=== PATIENT | male | born 1990 | race Caucasian/White ===

== ENCOUNTER 2017-01-26 15:04 | Emergency (ER) | payer OTHER ==
[2017-01-26] MEDS ORDERED: GENTAMICIN SULFATE 0.3% OPTH 5 ML BTL OPTH SCH (17:30)
--- NOTE | 2017-01-26 17:33 | Emergency Department Record ---
History of Present Illness - General Chief complaint: Eye Problem Stated complaint: BOTH EYE IRRATATION Time Seen by Provider: 01/26/17 17:23 Source: Patient Mode of Arrival: Ambulatory Limitations: No limitations - History of Present Illness Initial comments: 26 yo male presents to ED for evaluation of itching and irritation to the eyes bilaterally for the past 2-3 weeks. 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 Patient denies discharge from the eyes, and denies change in vision. Patient denies health problems at his baseline. Patient does report getting a new cat recently (several weeks ago), has been taking OTC allergy medication without improvement in his symptoms. chief complaint: Eye redness, Other (irritation) Onset/Timin -: Week(s) Onset Description: Gradual Location: Both eyes Place: Home If Injury: None Eye Symptoms: Burning, Itching, Pain, Redness Severity: Mild Severity scale (1-10): 4 Consistency: Intermittent Associated Symptoms: None Treatments Prior to Arrival: Irrigated eye, OTC eye drops - Related Data With correction: No Hx Tetanus Toxoid Vaccination: No Previous Rx's Medication Instructions Recorded Olopatadine HCl [Patanol] 5 ml OP BID #5 ml 01/26/17 Allergies Allergy/AdvReac Type Severity Reaction Status Date / Time No Known Drug Allergies Allergy Verified 03/01/14 14:57 Travel Screening - Travel/Exposure Within Last 30 Days Have you traveled within the last 30 days?: No - Travel Symptoms Symptom Screening: None Review of Systems Constitutional: Denies: Chills, Fever, Malaise, Night sweats Eyes: Reports: Other (itching, redness, irritation). Denies: Eye discharge, Photophobia, Vision change ENT: Denies: Congestion, Epistaxis, Hearing loss Respiratory: Denies: Cough, Dyspnea Cardiovascular: Denies: Chest pain, Dyspnea on exertion Endocrine: Denies: Fatigue, Heat or cold intolerance Gastrointestinal: Denies: Abdominal pain, Nausea, Vomiting Genitourinary: Denies: Incontinence, Retention Musculoskeletal: Denies: Arthralgia, Back pain, Gout, Joint swelling Skin: Denies: Bruising, Change in color Neurological: Denies: Abnormal gait, Confusion, Headache, Numbness Psychiatric: Denies: Anxiety Hematological/Lymphatic: Denies: Anemia, Blood Clots Past Medical History - SOCIAL HISTORY Smoking Status: Never smoker Alcohol Use: Occasional Drug Use: None - RESPIRATORY Hx Respiratory Disorders: No - CARDIOVASCULAR Hx Cardio Disorders: No - NEURO Hx Neuro Disorders: No - GI Hx GI Disorders: No - Hx Genitourinary Disorders: No - ENDOCRINE Hx Endocrine Disorders: No - MUSCULOSKELETAL Hx Musculoskeletal Disorders: No - PSYCH Hx Psych Problems: No - HEMATOLOGY/ONCOLOGY Hx Hematology/Oncology Disorders: No Family Medical History Any Significant Family History?: No Family Hx Comment (NOT TO BE USED IN PLACE OF ITEMS BELOW): DENIES Physical Exam - General General Appearance: Alert, Oriented x3, Cooperative, No acute distress Limitations: No limitations - Head Head exam: Atraumatic, Normocephalic, Normal inspection Head exam detail: negative: Abrasion, Contusion, Kelly's sign, General tenderness, Hematoma, Laceration - Eye Eye exam: Conjunctival injection, Other (mild injection to the right medial conjunctiva). negative: Periorbital swelling, Periorbital tenderness, Scleral icterus With correction: No - ENT Ear exam: negative: Auricular hematoma, Auricular trauma Nasal Exam: negative: Active bleeding, Discharge, Dried blood, Foreign body Mouth exam: negative: Drooling, Laceration, Muffled voice, Tongue elevation - Neck Neck exam: Normal inspection. negative: Meningismus, Tenderness - Respiratory Respiratory exam: Normal lung sounds bilaterally. negative: Respiratory distress, Rhonchi, Stridor, Wheezes - Cardiovascular Cardiovascular Exam: Regular rate, Normal rhythm, Normal heart sounds - GI/Abdominal GI/Abdominal exam: Soft. negative: Rebound, Rigid, Tenderness - Rectal Rectal exam: Deferred - exam: Deferred - Extremities Extremities exam: Normal inspection. negative: Pedal edema, Tenderness - Back Back exam: Denies: CVA tenderness (R), CVA tenderness (L) - Neurological Neurological exam: Alert, Normal gait, Oriented X3 - Psychiatric Psychiatric exam: Normal affect, Normal mood - Skin Skin exam: Normal color. negative: Abrasion Type of lesion: negative: abrasion Course Vital Signs 01/26/17 15:43 Temperature 98.9 F Pulse Rate 56 L Respiratory 20 Rate Blood Pressure 114/84 Pulse Ox 97 - Reevaluation(s) Reevaluation #1: 01/26/17 18:07 ON examination, no discharge is present from the medial canthus of either eye. Eyes were anesthetized bilaterally, Wood's lamp examination fails to demonstrate any corneal injury or abrasion, -Bulmaro's sign. Lids were everted bilaterally upper and lower without any evidence for FB. Patient has FROM of both eyes as well on examination, and VA is 20/20 bilaterally. Following examination, symptoms appear c/w conjunctivitis. Will treat with Polymyxin eye drops as well as Patanol as his symptoms are likely allergic in nature. Patient agrees with plan as discussed. Disposition Disposition: Discharge Clinical Impression: Conjunctivitis Qualifiers: Conjunctivitis type: acute Acute conjunctivitis type: unspecified Laterality: bilateral Qualified Code(s): H10.33 - Unspecified acute conjunctivitis, bilateral Disposition: Home, Self-Care Condition: (2) Stable Instructions: Conjunctivitis (ED) Additional Instructions: Return to ED if your symptoms worsen or if you have any concerns. Polymyxin/TMP every 3 hours to both eyes for 5-7 days. Continue over-the counter allergy medication as taken before. Patanol as directed. Follow-up with your family doctor in 3-5 days as directed. Prescriptions: Olopatadine HCl [Patanol] 5 ml OP BID #5 ml Forms: Patient Portal Access Time of Disposition: 18:12 Quality - Quality Measures Quality Measures: N/A - Blood Pressure Screening Does Patient Have Any of the Following: No Blood Pressure Classification: Pre-Hypertensive BP Reading Systolic Measurement: 114 Diastolic Measurement: 84 Screening for High Blood Pressure: < Pre-Hypertensive BP, F/U Documented > [ G8950] Pre-Hypertensive Follow-up Interventions: Referral to alternative/primary care provider.
[2017-01-26] MEDS ORDERED: NEO/POLY B/DEXAMETH 5ML SUSP EACH EYE ONE (18:11)
== END 2017-01-26 18:25 | disposition home or self-care (01) ==
LOC: ER 15:04
DX: H10.33 Unspecified acute conjunctivitis, bilateral (principal)
CPT/HCPCS: 99282

== ENCOUNTER 2017-12-13 15:15 | Emergency (ER) | payer OTHER ==
[2017-12-13] MEDS ORDERED: Diph,Pert(Acell),Tet Vac 0.5 ML SYR IM ONE (15:33)
--- NOTE | 2017-12-13 15:36 | Emergency Department Record ---
History of Present Illness - General Stated Complaint: LAC L LEG LOWER THIGH Time Seen by Provider: 12/13/17 15:33 Source: Patient Mode of Arrival: Ambulatory Limitations: No limitations - History of Present Illness Initial Comments: 27 yo male presents with a posterior left leg laceration. He slid on a metal stairway and lacerated the posterior leg on a sharp piece of the metal. He immediately clean the wound with soap and water then applied a dressing. The wound continue to bleed at times so he presented to the ED. The initial injury occurred at 4-4:30am. He has kept it clean and covered since then. Unsure of the last tetanus. MD Complaint: Leg injury -: Hour(s) Injury: Leg: Left Type of Injury: Laceration Place: Home Severity: Moderate Improves With: Nothing Worsens With: Nothing Context: Other Associated Symptoms: Other (No limitation in walking) - Related Data Previous Rx's Medication Instructions Recorded Cephalexin [Keflex] 500 mg PO QID #28 cap 12/13/17 Allergies Allergy/AdvReac Type Severity Reaction Status Date / Time No Known Drug Allergies Allergy Verified 12/13/17 15:35 Review of Systems Constitutional: Denies: Chills, Fever, Malaise, Weakness Eyes: Denies: Eye discharge ENT: Denies: Congestion, Throat pain Respiratory: Denies: Cough Cardiovascular: Denies: Syncope Gastrointestinal: Denies: Nausea, Vomiting Genitourinary: Denies: Dysuria, Frequency Musculoskeletal: Reports: Myalgia. Denies: Arthralgia, Back pain, Joint swelling, Neck pain Skin: Reports: Other (Laceration). Denies: Bruising, Change in color Neurological: Denies: Numbness, Tingling, Weakness Psychiatric: Denies: Anxiety Hematological/Lymphatic: Denies: Easy bleeding, Easy bruising Past Medical History - SOCIAL HISTORY Smoking Status: Never smoker Drug Use: None - RESPIRATORY Hx Respiratory Disorders: No - CARDIOVASCULAR Hx Cardio Disorders: No - NEURO Hx Neuro Disorders: No - GI Hx GI Disorders: No - Hx Genitourinary Disorders: No - ENDOCRINE Hx Endocrine Disorders: No - MUSCULOSKELETAL Hx Musculoskeletal Disorders: No - PSYCH Hx Psych Problems: No - HEMATOLOGY/ONCOLOGY Hx Hematology/Oncology Disorders: No Family Medical History Family Hx Comment (NOT TO BE USED IN PLACE OF ITEMS BELOW): DENIES Physical Exam - General General Appearance: Alert, Oriented x3, Cooperative, No acute distress Limitations: No limitations - Head Head exam: Atraumatic, Normal inspection - Eye Eye exam: Normal appearance, PERRL. negative: Conjunctival injection, Scleral icterus - ENT ENT exam: Normal exam Ear exam: Normal external inspection Nasal Exam: Normal inspection Mouth exam: Normal external inspection - Neck Neck exam: Normal inspection - Cardiovascular Cardiovascular Exam: Regular rate, Normal rhythm - exam: Deferred - Extremities Extremities exam: Full ROM, Normal capillary refill. negative: Normal inspection, Calf tenderness, Joint swelling, Pedal edema, Tenderness Image of Full Body: 1 - 6cm laceration, clean, no visible FB, no active bleeding, no visible tendon or muscle injury. - Neurological Neurological exam: Alert, Oriented X3 - Psychiatric Psychiatric exam: Normal affect, Normal mood - Skin Type of lesion: Laceration Course - Reevaluation(s) Reevaluation #1: We discussed the injury and some delay in presentation and increase risks for infection and wound healing. He did clean and dress the wound at the time of the injury. He understands the issues and agrees with closure after extensive cleaning and exploration. 12/13/17 16:11 Procedure Note: 6 cm laceration of the posterior left thigh/leg Wound was cleaned and prepped in sterile fashion, no residual FB identified on examination. No tendon or muscle involvement The wound was copiously irrigated with NS 1.5 L Wound was anesthetized with 6 mL of 1% Lidocaine with epinephrine The laceration was repaired with Ethilon 4-0 sutures in interrupted fashion. 12 sutures placed Patient tolerated the procedure well without complications. He will be made non weight bearing off work due to the location of the injury and nature of his job I have asked him to call his PCP for close follow up or return to the ED for a wound check this week given some increase risks with healing. We discussed home care, reasons for immediate return if any concerns, and suture removal in 14 days 12/13/17 16:48 Disposition Disposition: Discharge Clinical Impression: Leg laceration Disposition: Home, Self-Care Condition: (1) Good Instructions: Laceration (ED) Additional Instructions: Take the prescriptions provided today as directed. Call your family doctor. Call to schedule the next available appointment for a recheck this week No weight bearing. Use the crutches to avoid weight bearing. Do not return to work until cleared by your doctor Return to ED if your symptoms worsen or if you have any new concerns. Review the final Emergency Record and test results with your doctor on follow up Prescriptions: Cephalexin [Keflex] 500 mg PO QID #28 cap Forms: Patient Portal Access Time of Disposition: 16:13 Quality - Quality Measures Quality Measures: N/A - Blood Pressure Screening Does Patient Have Any of the Following: No Blood Pressure Classification: Pre-Hypertensive BP Reading Systolic Measurement: 120 Diastolic Measurement: 81 Screening for High Blood Pressure: < Pre-Hypertensive BP, F/U Documented > [ G8950] Pre-Hypertensive Follow-up Interventions: Referral to alternative/primary care provider.
[2017-12-13] MEDS ORDERED: CEPHALEXIN 500 MG CAPSULE PO STA (16:13)
== END 2017-12-13 16:45 | disposition home or self-care (01) ==
LOC: ER 15:15
DX: S71.112A Laceration without foreign body, left thigh, initial encounter (principal); W01.198A Fall on same level from slipping, tripping and stumbling with subsequent striking against other object, initial encounter; Y92.009 Unspecified place in unspecified non-institutional (private) residence as the place of occurrence of the external cause
CPT/HCPCS: 12032; 90715; 96372; 99283; 99284